=== PATIENT | female | born 1960 ===

== ENCOUNTER 2017-04-18 07:51 | Emergency (ER) | payer OTHER ==
[2017-04-18 07:56] VITALS: BMI 32.2
[2017-04-18 07:57] VITALS: TEMP 98.4; O2SAT 98
[2017-04-18] MEDS ORDERED: Dexamethasone 4 mg/1 ml IM STA (08:42)
[2017-04-18] MEDS ORDERED: Dexamethasone 4 mg/1 ml ONE (08:50)
--- NOTE | 2017-04-18 09:01 | C.PDOC ---
History Of Present Illness 56 y/o female presents to ED with complaints of neck swelling and pain radiating to head, constituent with knee pain and swelling x 2 weeks. Patient reports taking Advil for pain but no relief. Patient denies pain when swallowing , trauma, fever or any other complaint at this time. Time Seen by Provider: 04/18/17 08:07 Chief Complaint (Nursing): Upper Extremity Problem/Injury History Per: Patient History/Exam Limitations: no limitations Onset/Duration Of Symptoms: Days Current Symptoms Are (Timing): Still Present Quality: Pressure Past Medical History Reviewed: Historical Data, Nursing Documentation, Vital Signs Vital Signs: Last Vital Signs Temp 98.4 F 04/18/17 07:57 Pulse 69 04/18/17 10:44 Resp 18 04/18/17 10:44 BP 118/78 04/18/17 10:44 Pulse Ox 98 04/18/17 10:44 Family History: States: No Known Family Hx - Social History Hx Alcohol Use: No Hx Substance Use: No - Immunization History Hx Tetanus Toxoid Vaccination: No Hx Influenza Vaccination: No Hx Pneumococcal Vaccination: No Review Of Systems Except As Marked, All Systems Reviewed And Found Negative. Constitutional: Negative for: Fever, Chills Cardiovascular: Negative for: Chest Pain Respiratory: Negative for: Shortness of Breath, Pleuritic Pain Musculoskeletal: Positive for: Neck Pain Skin: Negative for: Rash Neurological: Positive for: Headache. Negative for: Weakness, Numbness Physical Exam - Physical Exam Appears: Non-toxic, No Acute Distress Skin: Normal Color, Warm, No Rash Head: Atraumatic, Normacephalic Eye(s): bilateral: Normal Inspection Oral Mucosa: Moist Throat: Normal Neck: Normal ROM, No Midline Cervical Tenderness, No Paracervical Tenderness, Supple, Other (Swelling of anterior neck) Chest: Symmetrical, No Tenderness Cardiovascular: Rhythm Regular, No Friction Rub, No Murmur Respiratory: Normal Breath Sounds, No Rales, No Rhonchi, No Wheezing Gastrointestinal/Abdominal: Soft, No Tenderness Back: Normal Inspection, No Vertebral Tenderness, No Paraspinal Tenderness Extremity: Normal ROM, No Pedal Edema, Swelling (Bilateral Knee swelling) Neurological/Psych: Oriented x3, Normal Speech, Normal Sensation Gait: Steady ED Course And Treatment O2 Sat by Pulse Oximetry: 98 (Room air ) Pulse Ox Interpretation: Normal Medical Decision Making Medical Decision Making: On re-exam, the patient reports improvement of symptoms. Ambulatory in the ED with steady gait. Lungs are CTA, heart is RRR, abdomen is soft, non-tender and patient is tolerating PO well. Follow up with the medical doctor within 1-2 days , Return if worsened Disposition - Disposition Referrals: [facility] [Outside] Disposition: HOME/ ROUTINE Disposition Time: 10:16 Condition: GOOD Additional Instructions: Follow up with the medical doctor/clinic within 1-2 days. Return if worsened Prescriptions: Naproxen [Naprosyn] 500 mg PO BID #20 tab traMADol/Acetaminophen [Ultracet 325 MG-37.5 MG] 1 tab PO Q8 PRN #15 tab PRN Reason: Pain Instructions: Muscle Strain (ED), Arthritis (ED) Forms: Work Excuse Print Language: SERBIAN - Clinical Impression Clinical Impression: Cervical strain, Knee pain - PA / WORKFORCE MANAGEMENT CONSULTANT / Resident Statement MD/DO has reviewed & agrees with the documentation as recorded. - Scribe Statement The provider has reviewed the documentation as recorded by the Lisseth Gordon All medical record entries made by the Lisseth were at my direction and personally dictated by me. I have reviewed the chart and agree that the record accurately reflects my personal performance of the history, physical exam, medical decision making, and the department course for this patient. I have also personally directed, reviewed, and agree with the discharge instructions and disposition.
--- NOTE | 2017-04-18 09:58 | RAD ---
PROCEDURE: Cervical Spine Radiographs. HISTORY: Pain. No history of recent/ related trauma provided COMPARISON: None. FINDINGS: BONES: Alignment maintained. No fracture. Dens Intact. DISC SPACES: Degenerative changes limited to the mid cervical spine C4-5 and C5-6, mild in severity. SOFT TISSUES: Normal. No prevertebral soft tissue swelling. OTHER FINDINGS: None. IMPRESSION: No significant or acute findings to account for/ related to the clinical presentation.
--- NOTE | 2017-04-18 10:00 | RAD ---
PROCEDURE: Bilateral Knee Radiographs. HISTORY: knee pain, and swelling COMPARISON: None. FINDINGS: BONES: Right Knee: Normal. No fracture. Left Knee: Normal. No fracture. JOINTS: Right Knee: Medial compartment degenerative change. Associated Proliferative hypertrophic changes emanating from the femoral condyle and tibial plateau. Mild patellofemoral degenerative change. Left knee: Normal. No osteoarthritis. SOFT TISSUES: Right Knee: Normal. Left Knee: Normal. JOINT EFFUSION: Right Knee: None. Left Knee: None. OTHER FINDINGS: None. IMPRESSION: No acute findings. Mild degenerative changes unilateral primarily affecting right medial compartment and patellofemoral joint.
[2017-04-18 10:45] VITALS: BP 118/78; PULSE 69; RESP 18
== END 2017-04-18 10:45 | disposition home or self-care (01) ==
LOC: C.ER 07:51
DX: S16.1XXA Strain of muscle, fascia and tendon at neck level, initial encounter (principal); X58.XXXA Exposure to other specified factors, initial encounter; M25.562 Pain in left knee; M25.561 Pain in right knee
CPT/HCPCS: 72040; 73562; 96372; 99285; J1100; J1885